=== PATIENT | male | born 1960 | race Caucasian/White ===

== ENCOUNTER 2019-10-26 06:38 | Emergency (ER) | payer OTHER ==
--- NOTE | 2019-10-26 07:09 | EDM.PDOC ---
ED HPI GENERAL MEDICAL PROBLEM - General Chief Complaint: Back Pain or Injury Stated Complaint: BACK PAIN Time Seen by Provider: 10/26/19 07:09 - History of Present Illness INITIAL COMMENTS - FREE TEXT/NARRATIVE: 59-year-old male presents the emergency room with low back pain. This started yesterday but really got aggravated through the night when he was trying to sleep and could not get comfortable. The patient had a long road trip yesterday and states that seat was very firm. Patient has not had any significant lifting injuries or back problems in the past. Patient has not had any injuries to his back recently no heavy lifting or repetitive lifting. Patient denies any loss of bowel or bladder control. Describes his pain is right-sided next to the spine and down into his buttocks. He does not have pain that extends into his lower leg. No numbness or tingling. Patient has a history of atherosclerotic disease thought to be in part due to radiation therapy that he received for lymphoma treatment in the past. 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 Right Lower Back Pain Score (Numeric/FACES): 5 - Related Data Allergies Allergy/AdvReac Type Severity Reaction Status Date / Time No Known Allergies Allergy Verified 10/26/19 06:45 Home Meds: Home Meds Aspirin 81 mg PO BEDTIME 10/26/19 [History] Cholecalciferol (Vitamin D3) [Vitamin D3] 5,000 unit PO BEDTIME 10/26/19 [History] Cyclobenzaprine [Flexeril] 10 mg PO TID #15 tab 10/26/19 [Rx] Escitalopram [Lexapro] 10 mg PO BEDTIME 10/26/19 [History] Levothyroxine Sodium [Levoxyl] 75 mcg PO DAILY 10/26/19 [History] Rosuvastatin Calcium 40 mg PO BEDTIME 10/26/19 [History] Sildenafil [Viagra] 50 mg PO BEDTIME 10/26/19 [History] carvediloL [Carvedilol] 6.25 mg PO BID 10/26/19 [History] Past Medical History HEENT History: Reports: Impaired Vision Cardiovascular History: Reports: CAD, High Cholesterol Endocrine/Metabolic History: Reports: Hypothyroidism - Past Surgical History Cardiovascular Surgical History: Reports: Coronary Artery Bypass Social & Family History - Family History Family Medical History: Noncontributory - Tobacco Use Smoking Status *Q: Never Smoker - Caffeine Use Caffeine Use: Reports: Coffee - Recreational Drug Use Recreational Drug Use: No ED ROS GENERAL - Review of Systems Review Of Systems: See Below Constitutional: Reports: No Symptoms Respiratory: Reports: No Symptoms Cardiovascular: Reports: No Symptoms GI/Abdominal: Reports: No Symptoms : Reports: No Symptoms ED EXAM,LOWER BACK PAIN/INJURY - Physical Exam Exam: See Below Exam Limited By: No Limitations General Appearance: Alert, No Apparent Distress Respiratory/Chest: No Respiratory Distress, Lungs Clear, Normal Breath Sounds Cardiovascular: Regular Rate, Rhythm, No Edema, No Murmur GI/Abdominal: Normal Bowel Sounds, Soft, Non-Tender Back Exam: Normal Inspection, Muscle Spasm (Paraspinous muscles in the lumbar region extending downward. Straight leg raises do not make the pain any worse.). No: Vertebral Tenderness Extremities: Normal Inspection, No Pedal Edema Neurological: Alert, Normal Mood/Affect, Normal Gait, No Motor/Sensory Deficits Course - Vital Signs Last Recorded V/S: Last Vital Signs Temp 36.2 C 10/26/19 06:43 Pulse 70 10/26/19 06:43 Resp 18 10/26/19 06:43 BP 144/88 H 10/26/19 06:43 Pulse Ox 98 10/26/19 06:43 - Orders/Labs/Meds Meds: Medications Discontinued Medications Generic Name Dose Route Start Last Admin Trade Name Quan PRN Reason Stop Dose Admin Hydrocodone Bitart/Acetaminophen 1 tab 10/26/19 07:56 Hickman 325-5 Mg PO 10/26/19 07:57 ONETIME ONE Cyclobenzaprine HCl 10 mg 10/26/19 07:28 10/26/19 07:48 Flexeril PO 10/26/19 07:29 10 mg ONETIME ONE Administration - Re-Assessments/Exams Free Text/Narrative Re-Assessment/Exam: 10/26/19 07:36 We did discuss the pros and cons of imaging. He has not had any significant injury but he does have a history of lymphoma. And the degree of spasm I am palpating does not necessarily correlate with the severity of his symptoms. However, the patient really wants to hold off on this until he gets back home. Urinalysis is probably of little benefit he is not having any urinary symptoms abdominal exam is entirely normal. At this point will start the patient on Tylenol and Flexeril. He is Flexeril 3 times daily today and possibly tomorrow and then 1 at bedtime thereafter. 10/26/19 07:57 The patient decided he did want a pain pill before going home and we did discuss this option. However I do not want him on routine opioids in the short-term. I have given an order for 1 Su 07/15/2024 p.o. now Departure - Departure Time of Disposition: 07:38 Disposition: Home, Self-Care 01 Clinical Impression: Lumbosacral strain - Discharge Information Prescriptions: Cyclobenzaprine [Flexeril] 10 mg PO TID #15 tab Instructions: Lumbosacral Strain Referrals: PCP,Not In Area [Primary Care Provider] - Forms: ED Department Discharge Additional Instructions: Return to the emergency room with any questions problems or worsening symptoms. Use Tylenol 2 extra strength, or 500 mg tablets, every 6 hours. You have been started on Flexeril, this is a muscle relaxant, the generic name is cyclobenzaprine. Take 1 3 times daily, or every 8 hours, today and possibly tomorrow. And then 1 nightly thereafter. Allow 12 hours after using this medication before driving or returning to work. Follow-up with your regular physician as soon as you get home. Sepsis Event Note (ED) - Evaluation Sepsis Screening Result: No Definite Risk - Focused Exam Vital Signs: Vital Signs Temp Pulse Resp BP Pulse Ox 10/26/19 06:43 36.2 C 70 18 144/88 H 98
[2019-10-26] MEDS ORDERED: Cyclobenzaprine 10 MG Tab PO ONE (07:28)
[2019-10-26] MEDS ORDERED: Acetaminophen/HYDROcodone 325-5 MG Tab PO ONE (07:56)
== END 2019-10-26 08:03 | disposition home or self-care (01) ==
LOC: JD.ED 06:38
DX: S39.012A Strain of muscle, fascia and tendon of lower back, initial encounter (principal); I25.10 Atherosclerotic heart disease of native coronary artery without angina pectoris; E78.00 Pure hypercholesterolemia, unspecified; E03.9 Hypothyroidism, unspecified; Z79.899 Other long term (current) drug therapy; Z79.82 Long term (current) use of aspirin; X58.XXXA Exposure to other specified factors, initial encounter
CPT/HCPCS: 99283; A9270